=== PATIENT | male | born 1960 | race Caucasian/White ===

== ENCOUNTER 2016-11-18 12:20 | Emergency (ER) | payer MEDICARE, OTHER ==
--- NOTE | ~2016-11-18 | EKG ---
PATIENT: SANGITA TREVINO UNIT #: [id number] Ventricular Rate: 59 BPM Atrial Rate: 59 BPM P-R Interval: 148 ms QRS Duration: 92 ms Q-T Interval: 426 ms QTC Calculation(Bezet): 421 ms P [place]: 69 degrees Calculated R [place]: 72 degrees Calculated T [place]: 65 degrees Diagnosis Line: Sinus bradycardia Diagnosis Line: Otherwise normal ECG Diagnosis Line: No previous ECGs available Diagnosis Line: Confirmed by ISAÍAS ARORA MD ([id number]) on Diagnosis Line: 11/19/2016 11:35:21 AM INTERPRETING MD: MAITE DEMPSEY
--- NOTE | ~2016-11-18 | CR72 ---
[facility] A Service of [facility] RADIOLOGY TEXT RESULTS PATIENT: SANGITA TREVINO LOCATION: [facility] : 60 UNIT #: [id number] AGE: [address]: John Paul Berg MD SEX: M ORDER DR: [id number] [facility]. [place], [place] [address] [id number] MR#: [id number] Acc #: [id number] NAME: SANGITA TREVINO : 1960 SEX: M STUDY DATE/TIME: 11/18/2016 13:54 UNIT: [facility] ROOM: STUDY DESCRIPTION: CR Chest Single View Portable Attending Physician: Karl Berg M.D. Ordering Physician: Ed Doctor [id number] [facility] Primary Care Physician: Maria Fernanda Rosen Aprn MEDICAL IMAGING REPORT This report is preliminary unless electronic signature is present EXAM Single view chest x-ray 11/18/2016 HISTORY A 56-year-old male in the ED complaining of left side chest pain and shortness of air after a fall about 1 week ago. TECHNIQUE AP portable upright chest x-ray. FINDINGS No evidence of acute traumatic thoracic chest injury. No visible displaced rib fracture or pneumothorax. Postoperative changes of previous right thoracotomy with surgical ivette in the right upper chest. There is an ill-defined opacity in the right lower lung beneath the right hilum. This could represent acute infiltrate, consider followup chest CT examination to exclude mass of the patient's previous chest surgery was for malignant disease. Heart size and pulmonary vascularity are normal. Old healed right side rib fractures. IMPRESSION 1. No evidence of acute traumatic thoracic injury. No pneumothorax. 2. Post thoracotomy changes in the right hemithorax. 3. Ill-defined focal opacity in the right lower lung beneath the right hilum. Consider chest CT followup as noted above. Dictated by... Kingsley Duarte M.D. THIS IS AN ELECTRONICALLY VERIFIED REPORT [facility] A Service of [facility] RADIOLOGY TEXT RESULTS PATIENT: SANGITA TREVINO LOCATION: [facility] : 60 UNIT #: [id number] AGE: [address]: John Paul Berg MD SEX: M ORDER DR: Kingsley Duarte M.D. at 11/19/2016 9:50 PM CARISSA/austin TD: 11/19/2016 02:17 JOB #: [id number] MEDICAL IMAGING REPORT Page 1 of 1 COPY
[2016-11-18 13:26] LABS: BASOPHIL# 0.1 X10e3 (0-0.3); BASOPHIL% 0.7 % (0-2.5); DIFF IND NO; EOSINOPHIL# 0.4 X10e3 (0-0.7); EOSINOPHIL% 3.9 % (0.0-7.0); HEMOGLOBIN 14.8 gm/dL (13.0-16.0); LYMPHOCYTE# 1.9 X10e3 (1.0-3.5); MEAN CELL VOLUME 93.2 FL (83-96); MEAN CORPUSCULAR HEMOGLOBIN 32.2 PG (28-34); MEAN CORPUSCULAR HGB CONC 34.5 g/dL (30-36); MEAN PLATELET VOLUME 8.2 FL (6.5-11.5); MONOCYTE# 1.1 X10e3 (0-1.0); MONOCYTE% 10.3 % (3.0-12.0); NEUTROPHIL# 6.9 X10e3 (1.5-7.1); NEUTROPHIL% 67.1 % (40-75); PLATELET COUNT 184 X10e3 (140-420); RED BLOOD COUNT 4.61 X10e (3.90-5.60); WHITE BLOOD COUNT 10.3 X10e3 (4.0-10.5)
[2016-11-18 13:58] LABS: POC - CKMB 3.5 ng/mL (0.0-7.9); POC - TROPONIN <0.05 ng/mL (<=0.05)
[2016-11-18 13:58] LABS: CALCIUM SERUM 9.4 mg/dL (8.4-10.2); GLOM FILT RATE Estimated 83.8 mL/min (>60); POTASSIUM 5.2 mmol/L (3.5-5.1)
== END 2016-11-18 16:40 | disposition home or self-care (01) ==
LOC: CED 12:20
PROVIDERS: Emergency Medicine
DX: S20.212A Contusion of left front wall of thorax, initial encounter (principal); J18.9 Pneumonia, unspecified organism; E87.5 Hyperkalemia; G40.909 Epilepsy, unspecified, not intractable, without status epilepticus; F17.210 Nicotine dependence, cigarettes, uncomplicated; Z91.030 Bee allergy status; W19.XXXA Unspecified fall, initial encounter
CPT/HCPCS: 36415; 71010; 80048; 82553; 84484; 85025; 93005; 94640; 99285